=== PATIENT | male | born 1985 | race Caucasian/White ===

== ENCOUNTER 2019-09-07 15:59 | Emergency (ER) | payer OTHER ==
[2019-09-07] MEDS ORDERED: DIPHENHYDRAMINE HCL 50 MG/ML VIAL IM ONE (16:55)
[2019-09-07] MEDS ORDERED: FAMOTIDINE 20 MG TABLET PO ONE (16:56)
[2019-09-07] MEDS ORDERED: DEXAMETHASONE SOD PHOS INJ 10 MG/1 ML VIAL IM ONE (16:56)
--- NOTE | 2019-09-07 17:01 | ER Document Report ---
HPI - HPI Patient complains to provider of: Allergic reaction Time Seen by Provider: 09/07/19 16:48 Onset: This afternoon - 1500 Onset/Duration: Sudden Quality of pain: No pain Context: This 34-year-old male presents emergency department with possible allergic reaction to ant bites. Patient reports he was previously bitten 6 times by fire ants. He had an allergic reaction anaphylactic they had to give him steroids and epi. He was discharged home with EpiPen's. He was instructed if it ever happens again to use epi and get to the emergency department quick. He reports that approximate 1500 today he was bit 4 times by fire ants on his hand. Patient reports no symptoms yet although his ears feel slightly swollen. No other complaints such as fever vomiting diarrhea. Patient speaking in a clear voice no distress respiratory rate even unlabored. Several insect bites noted to right hand. No rash to abdomen or back. Associated Symptoms: None Exacerbated by: Denies Relieved by: Denies Similar symptoms previously: Yes Recently seen / treated by doctor: No Past Medical History - General Information source: Patient - Social History Smoking Status: Unknown if Ever Smoked Cigarette use (# per day): No Frequency of alcohol use: None Drug Abuse: None Lives with: Family Family History: None Patient has suicidal ideation: No Patient has homicidal ideation: No - Past Medical History Cardiac Medical History: Reports: Hx Hypertension Surgical Hx: Negative Vertical Provider Document - CONSTITUTIONAL Agree With Documented VS: Yes Exam Limitations: No Limitations General Appearance: WD/WN, No Apparent Distress - HEENT HEENT: Atraumatic, Normal ENT Exam, Normocephalic. negative: Conjuctival Injection, Pharyngeal Erythema Notes: Patient speaking in a clear voice no slurred speech. No swelling of his tongue. - NECK Neck: Normal Inspection, Supple. negative: Lymphadenopathy-Left, Lymphad enopathy-Right - RESPIRATORY Respiratory: Breath Sounds Normal, No Respiratory Distress. negative: Rales, Rhonchi, Wheezing - CARDIOVASCULAR Cardiovascular: Regular Rate, Regular Rhythm - GI/ABDOMEN Gastrointestinal: Abdomen Soft, Abdomen Non-Tender - BACK Back: Normal Inspection - MUSCULOSKELETAL/EXTREMETIES Musculoskeletal/Extremeties: MAEW, FROM, Non-Tender - NEURO Level of Consciousness: Awake, Alert, Appropriate Motor/Sensory: No Motor Deficit - DERM Integumentary: Warm, Dry, No Rash. negative: Rash, Abscess Adult Front & Back Diagram: 1 - Several ant bites noted to right dorsal hand, no open wounds, no hives Course - Re-evaluation Re-evalutation: 09/07/19 17:55 34-year-old male presents to emergency department with history of anaphylactic or allergic reaction to fire ants. He was bit by fire ants received 4 bites at approximately 1500 today. He does have an EpiPen but did not use it. When he arrived to the emergency department he was treated with Benadryl Decadron and Pepcid. Patient reports he takes Zantac every day. He reports no swelling no difficulty breathing swallowing without problems. Denies feeling like his tongue is swollen denies itchiness. Patient talking a clear voice no distress. He was instructed to monitor his symptoms take Benadryl as indicated for the next 48 hours as well as Zantac. He was also instructed to follow-up with his primary care provider for recheck and stay away from fire ants. He verbalized understanding to all instructions - Vital Signs Vital signs: Temp Pulse Resp BP Pulse Ox 97.6 F 62 18 142/81 H 95 09/07/19 16:44 09/07/19 16:44 09/07/19 16:44 09/07/19 16:44 09/07/19 16:44 Discharge - Discharge Clinical Impression: Allergic reaction Condition: Stable Disposition: HOME, SELF-CARE Instructions: Use of Diphenhydramine, Steroid Medication Injection, Acute Allergic Reaction ([facility]) Additional Instructions: *You have been evaluated for an allergic reaction to fire ant bites *Take Benadryl as indicated for the next 48 hours *Follow up with a primary care provider within 1 week for recheck *Return to ED for difficulty breathing, worsening condition, changes, needs Monitor your blood pressure. Your blood pressure was elevated today. This may be because you were anxious, in pain or because you need medication. It is important to follow up with your primary care provider for full evaluation. Forms: Elevated Blood Pressure
[2019-09-07 17:50] VITALS: BP 161/81
== END 2019-09-07 17:57 | disposition home or self-care (01) ==
LOC: ER 15:59
DX: T63.421A Toxic effect of venom of ants, accidental (unintentional), initial encounter (principal); I10 Essential (primary) hypertension; Z79.899 Other long term (current) drug therapy
CPT/HCPCS: 99283; 96372; J1200; J1100